=== PATIENT | female | born 1995 | race Caucasian/White ===

== ENCOUNTER 2017-04-29 14:54 | Inpatient (IN) | payer OTHER ==
[~2017-04-29] VITALS: Ht 157.5 cm; Wt 91.4 kg
--- NOTE | 2017-04-29 15:32 | RADRPT ---
PROCEDURE: US OB. CLINICAL INDICATION: Size and dates , hypertension TECHNIQUE: Multiple sonographic images of the pelvis and gravid uterus were obtained. The images were reviewed on a PACS workstation. COMPARISON: No prior studies are available for comparison. FINDINGS: There is a single viable intrauterine gestation. Cardiac activity is present with 152 beats per min sun'aq. There is a vertex presentation. The placenta is fundal maternal right. There is no evidence for an abruption or placenta previa. Measurements were made in order to determine age. The results are as follows: BPD =8.2 cm HC =29.2 cm AC =29.3 cm FL =6.2 cm Estimated gestational age of approximately 32 weeks and 5 days based on ultrasound measurements. Clinical age: 31 weeks and 4 days. The estimated date of delivery is 06/19/17, based on ultrasound measurements. The EFW = 2070 g, 81%, based on LMP age. RPTAT: AA IMPRESSION: Single viable intrauterine gestation of approximately 32 weeks and 5 days based on ultrasound measu rements. .Serafin Aguila MD, Date Time Electronically viewed and signed by .Serafin Aguila MD, MD on 04/29/2017 15:32 .S/
--- NOTE | 2017-04-29 15:47 | RADRPT ---
PROCEDURE: US OB biophysical profile. CLINICAL INDICATION: decreased movements TECHNIQUE: Multiple sonographic images of the pelvis were obtained. The images were reviewed on a PACS workstation. COMPARISON: No prior studies are available for comparison. FINDINGS: There is a single viable intrauterine gestation. Cardiac activity is present with 154 beats per min mervin. There is a vertex presentation. The placenta is fundal maternal right. There is no evidence of placental abruption. There is a normal amount of amniotic fluid with an CINDY = 11.3 cm. Biophysical profile: movement 2/2 tone 2/2. breathing 2/2 CINDY 2/2 Total 04/13 RPTAT: AA . IMPRESSION: Normal biophysical profile. . .Serafin Aguila MD, MD Date Time Electronically viewed and signed by .Serafin Aguila MD, MD on 04/29/2017 15:47 .S/
[2017-04-29 15:54] LABS: BASOPHILS % 0.3 % (0.0-2.0); EOSINOPHILS # 0.1 10^3/ul (0.0-0.5); EOSINOPHILS % 0.6 % (0.0-7.0); HEMATOCRIT 34.4 % (37.0-47.0); HEMOGLOBIN 11.1 g/dl (12.0-16.0); LYMPHOCYTES # 1.9 10^3/ul (0.8-2.9); LYMPHOCYTES % 17.7 % (15.0-51.0); MEAN CORPUSCULAR HGB CONC 32.3 g/dl (32.0-37.0); MEAN CORPUSCULAR VOLUME 83.7 fl (82.0-101.0); MEAN PLATELET VOLUME 12.6 fl (7.4-10.4); MONOCYTE # 0.7 10^3/ul (0.3-0.9); MONOCYTES % 6.5 % (0.0-11.0); NEUTROPHILS % 74.4 % (39.0-77.0); PLATELET COUNT 159 10^3/UL (140-415); RED BLOOD COUNT 4.11 10^6/ul (4.20-5.40)
[2017-04-29 16:05] LABS: ADD UMIC YES; UR ASCORBIC ACID NEGATIVE (NEGATIVE); UR BACTERIA FEW /HPF (NONE SEEN); UR BILIRUBIN (Dip) NEGATIVE (NEGATIVE); UR BLOOD (Dip) NEGATIVE (NEGATIVE); UR CLARITY CLEAR (CLEAR); UR COLOR STRAW (YELLOW); UR GLUCOSE (Dip) NEGATIVE (NEGATIVE); UR KETONES (Dip) NEGATIVE (NEGATIVE); UR LEUKOCYTE ESTERASE (Dip) NEGATIVE Leu/ul (NEGATIVE); UR NITRITE (Dip) NEGATIVE (NEGATIVE); UR RBC 1 /HPF (0-5); UR SPECIFIC GRAVITY (Dip) 1.003 (1.003-1.030); UR SQUAMOUS EPITHELIAL CELL FEW /HPF (FEW); UR TOTAL PROTEIN (Dip) 1+ mg/dl (NEGATIVE); UR UROBILINOGEN (Dip) NEGATIVE (NEGATIVE)
[2017-04-29 16:33] LABS: ALBUMIN 2.7 g/dl (3.3-4.9); ALBUMIN/GLOBULIN RATIO 0.9; CALCIUM 8.6 mg/dl (8.4-10.2); CREATININE 0.67 mg/dl (0.44-1.00); TOTAL PROTEIN 5.7 g/dl (6.1-8.1); URIC ACID 5.5 mg/dl (3.1-7.9)
--- NOTE | 2017-04-29 16:33 | TRIAGE ---
OB Triage Datetime Report Generated by CPN: 04/29/2017 16:32 Datetime: 04/29/2017 16:07 Stage of : OB Triage Maternal Assessment Level of Consciousness: Fully Conscious DTR's/Clonus: DTRs 2+ Headache: Denies Blurred Vision: No Nausea/Vomiting: Denies RUQ Epigastric Pain: Denies Facial Edema: 1+ Labor Evaluation Frequency: 0 Monitor Mode: External Pattern: Normal: <= 5 Contractions in 10 Minutes Resting Tone Custer: Relaxed Heart Rate FHR Baseline Rate: 155 Monitor Mode: External US Variability: Moderate 6-25 bpm Accelerations: 15X15 Decelerations: None Category: Category I Pain Presence: None/Denies Pain Type: N/A Datetime: 04/29/2017 15:40 Time of Arrival: 04/29/2017 14:47 EGA: 31.4 Arrived By: Ambulatory Arrived From: Dr. Rocha Chief Complaint: SENT FROM CLINIC FOR ELEVATED B/P Movement: Present Contractions: Denies/Absent Rupture of Membranes: Denies Vaginal Bleeding: None Vaginal Discharge: Denies Recent Sexual Intercouse: Denies Patient Complaints: Other Time Provider Notified: 04/29/2017 16:30 Provider Notified: DR. IQBAL Initial Plan: EFMX2, PIH EVALIATION Datetime: 04/29/2017 15:30 Stage of : OB Triage Assessment Type: Triage Maternal Assessment Level of Consciousness: Fully Conscious DTR's/Clonus: DTRs 2+; No Clonus Headache: Denies Blurred Vision: No Respiratory Effort: Unlabored; Regular Rhythm; Equal Expansion Breath Sounds, Left: Clear and Equal Breath Sounds, Right: Clear and Equal Nausea/Vomiting: Denies RUQ Epigastric Pain: Denies Lower Extremities Edema: Bilateral Lower Extremities Degree: Pitting Upper Extremities Edema: None Degree: None Facial Edema: None Temperature Route: Oral Fall Risk Assessment History of Falling: (0) No Secondary Diagnosis: (0) No Ambulatory Aid: (0) Bedrest/Nurse Assist IV Therapy: (0) No Gait: (0) Normal/Bedrest/Immobile Mental Status: (0) Oriented to Own Ability Fall Score: 0 Fall Risk Score Definition: No Risk: No action required Labor Evaluation Frequency: 0 Monitor Mode: External Monitor Mode: External US Pain Assessment Pain Scale: 0 Pain Presence: None/Denies Pain Type: N/A
[2017-04-29] MEDS ORDERED: BETAMET NA PHOS/AC(6 MG/ML) 5ML INJ IM ONE (17:00)
[2017-04-29] MEDS ORDERED: LABETALOL 200 MG TAB PO ONE (17:00)
[2017-04-29] MEDS: BETAMET NA PHOS/AC(6 MG/ML) 5ML INJ IM SCH (17:00)
[2017-04-29] MEDS ORDERED: MAGNESIUM SULFATE 4 GM/100 ML 100 ML IV ONE (17:00)
[2017-04-29] MEDS: LACTATED RINGER'S 1,000 ML IV SCH (17:10)
[2017-04-29] MEDS: MAGNESIUM SULFATE 20 GM/500 ML 500 ML IV SCH (17:53)
[2017-04-29] MEDS: ACETAMINOPHEN 325 MG TAB PO PRN (20:47)
[2017-04-29] MEDS ORDERED: LABETALOL 200 MG TAB PO PRN (21:00)
[2017-04-29 21:55] VITALS: Ht 157.5 cm; Wt 91.4 kg
[2017-04-29] MEDS ORDERED: LABETALOL HCL 20MG INJ ONE (23:29)
[2017-04-29] MEDS: LABETALOL HCL 20MG INJ IV PRN (23:45)
[2017-04-30 01:18] LABS: BASOPHILS % 0.1 % (0.0-2.0); HEMATOCRIT 34.6 % (37.0-47.0); HEMOGLOBIN 11.4 g/dl (12.0-16.0); LYMPHOCYTES # 1.4 10^3/ul (0.8-2.9); LYMPHOCYTES % 8.5 % (15.0-51.0); MEAN CORPUSCULAR HEMOGLOBIN 27.1 pg (29.0-33.0); MEAN CORPUSCULAR HGB CONC 32.9 g/dl (32.0-37.0); MEAN CORPUSCULAR VOLUME 82.2 fl (82.0-101.0); MONOCYTE # 0.2 10^3/ul (0.3-0.9); MONOCYTES % 0.9 % (0.0-11.0); NEUTROPHILS % 89.6 % (39.0-77.0); PLATELET COUNT 183 10^3/UL (140-415); RED BLOOD COUNT 4.21 10^6/ul (4.20-5.40); RED CELL DISTRIBUTION WIDTH 12.9 % (11.5-14.5); WHITE BLOOD COUNT 15.8 10^3/ul (4.8-10.8)
[2017-04-30 01:47] LABS: ALBUMIN 2.9 g/dl (3.3-4.9); ALBUMIN/GLOBULIN RATIO 0.9; CREATININE 0.63 mg/dl (0.44-1.00); POTASSIUM 4.3 mmol/L (3.5-5.1); TOTAL PROTEIN 6.1 g/dl (6.1-8.1); URIC ACID 5.7 mg/dl (3.1-7.9)
[2017-04-30] MEDS: LACTATED RINGER'S 1,000 ML IV SCH ×3 (04:46→16:03)
[2017-04-30] MEDS: LABETALOL 100 MG TAB PO SCH ×2 (04:49→18:44)
[2017-04-30] MEDS ORDERED: LABETALOL 200 MG TAB PO SCH (05:00)
[2017-04-30] MEDS ORDERED: LABETALOL 100 MG TAB PO PRN (05:00)
[2017-04-30] MEDS: MAGNESIUM SULFATE 20 GM/500 ML 500 ML IV SCH ×2 (07:51→20:12)
[2017-04-30] MEDS: ACETAMINOPHEN 325 MG TAB PO PRN ×2 (07:54→20:05)
[2017-04-30] MEDS: METOCLOPRAMIDE 10 MG TAB PO SCH ×2 (08:20→09:20)
[2017-04-30] MEDS: PRENATAL VITAMIN PO SCH (09:19)
[2017-04-30] MEDS: FOLIC ACID 1 MG TAB PO SCH (09:20)
[2017-04-30 09:57] LABS: ALBUMIN/GLOBULIN RATIO 0.96; CALCIUM 7.7 mg/dl (8.4-10.2); CREATININE 0.67 mg/dl (0.44-1.00); TOTAL PROTEIN 6.1 g/dl (6.1-8.1)
[2017-04-30 10:05] LABS: POTASSIUM 4.7 mmol/L (3.5-5.1)
[2017-04-30 13:00] LABS: WHITE BLOOD COUNT 16.8 10^3/ul (4.8-10.8)
[2017-04-30 13:01] LABS: BASOPHILS % 0.1 % (0.0-2.0); HEMOGLOBIN 10.6 g/dl (12.0-16.0); LYMPHOCYTES # 1.5 10^3/ul (0.8-2.9); LYMPHOCYTES % 9.2 % (15.0-51.0); MEAN CORPUSCULAR HEMOGLOBIN 27.5 pg (29.0-33.0); MEAN CORPUSCULAR HGB CONC 33.1 g/dl (32.0-37.0); MEAN CORPUSCULAR VOLUME 82.9 fl (82.0-101.0); MEAN PLATELET VOLUME 12.6 fl (7.4-10.4); MONOCYTE # 0.9 10^3/ul (0.3-0.9); MONOCYTES % 5.1 % (0.0-11.0); PLATELET COUNT 170 10^3/UL (140-415); RED BLOOD COUNT 3.86 10^6/ul (4.20-5.40); RED CELL DISTRIBUTION WIDTH 13.2 % (11.5-14.5)
--- NOTE | 2017-04-30 14:15 | HP ---
Date/Time of Note Date/Time of Note DATE: 04/30/17 TIME: 14:07 OB - History Hx of Present Chief Complaint: Elevated BP Estimated Due Date: Jun 22, 2017 : 2 Para: 0 Spontaneous : 0 Therapeutic : 1 Ultrasounds: Normal mid trimester US Obstetrical Complications: None Medical Complications: None Past Family/Social History * Past Medical, Surgical, Family and Obstetric Histories reviewed from chart. OB Admission Exam Physical Exam HEENT: WNL Heart: Rhythm Normal Lungs: Clear, Equal Abdomen: WNL Extremities: Edema Reflexes: Normal Heart Rate: 130's Accelerations: Accelerations Present Decelerations: No Decelerations Varibility: Moderate Last 72 hourBlood Glucose Bedside Glucose - 72 Hours Test 04/30/17 08:04 Bedside Glucose 170mg/dL (70-220) Last 72 hours Lab Results CBC & BMP 04/29/17 15:40 04/30/17 00:54 04/30/17 05:54 04/30/17 12:35 Liver Function Test 04/29/17 15:40 04/30/17 00:54 04/30/17 05:54 Alanine Aminotransferase (ALT/SGPT) 51 47 45 Albumin 2.7 L 2.9 L 3.0 L Alkaline Phosphatase 172 H 204 H 211 H Aspartate Amino Transf (AST/SGOT) 66 H 67 H 56 H Direct Bilirubin 0.00 0.00 0.00 Total Protein 5.7 L 6.1 6.1 Hemoglobin A1C Test 04/30/17 12:35 Hemoglobin A1c 7.3 H Magnesium Level Test 04/30/17 00:54 04/30/17 05:50 04/30/17 12:35 Magnesium Level 4.5 H 5.2 *H 5.3 *H OB Assessment/Plan Reason for admission: other (Preeclampsia) Plan: Other Induction Method: other Other plan: Admit IV magnesium sulfate Labetalol Perinatology consult Neonatology consult IM betamethasone PIH labs 24 hour urine collection SURESH IQBAL MD Apr 30, 2017 14:15
--- NOTE | 2017-04-30 14:46 | PERINOTE ---
Date/Time of Note Date/Time of Note DATE: 04/30/17 TIME: 14:38 Assessment/Recommendations Other Assessments Severe preeclampsia remote from term BP is responding to medication Elevated LFT appears to be stable at this time Other PIH labs are negative Recommendations: I discussed this with the patient, including my recommendation that she remain in the hospital until delivery. I would favor delivery at 34 weeks GA at the latest due to the severe preeclampsia. Worsening of the disease, including uncontrolled BP and worsening liver status, would mandate earlier delivery. To this end, I would favor "PIH" labs daily until delivery. I will write instructions for the care of apparentl GDM in this patient. OB Subjective Free Text/Dictaton Patient admitted for elevated BPs in the clinic. She has been treated with labetalol (for BP) and magnesium (for seizure prophylaxis), with good BP control. She has also been found to have mildly elevated AST/ALT (67/47), stable over the course of the day. Patient has also received betamethasone for lung maturity, with elevated blood glucose levels. There is no third trimester blood glucose testing in the record. HD# 2 IUP @ 32W3D (by LMP of 06/22/17) Current Medications Current Medications Lactated Ringer's 1,000 ml @ 92 mls/hr [id number] IV Last administered on 04:46; Admin Dose 92 MLS/HR; Start 04/29/17 at 16:44 Magnesium Sulfate (Magnesium Sulfate 20 Gm/500 ml) 500 ml @ 37.5 mls/hr [id number] IV Last administered on 04/30/17 07:51; Admin Dose 37.5 MLS/HR; Start 04/29/17 at 16:44 Betamethasone Acet/Betameth SodPhos (Celestone Soluspan) 12 mg Q24H IM ; Start 04/29/17 at 17:00; Stop 04/30/17 at 17:01 Acetaminophen (Tylenol Tab) 650 mg Q4H PRN PO PAIN AND OR ELEVATED TEMP Last administered on 04/30/17 07:54; Admin Dose 650 MG; Start 04/29/17 at 20:30 Labetalol HCl (Labetalol) 20 mg Q10MIN PRN IV ELEVATED BLOOD PRESSURE Last administered on 04/29/17 23:45; Admin Dose 20 MG; Start 04/29/17 at 23:30 Labetalol HCl (Normodyne) 300 mg Q8H PRN PO ELEVATED BLOOD PRESSURE; Start at 05:00 Labetalol HCl (Normodyne) 300 mg BID PO Last administered on 04/30/17 04:49; Admin Dose 300 MG; Start 04/30/17 at 05:01 Prenat Multivit/ [place]/Iron/Folic Ac () 1 tab DAILY PO Last administered on 04/30/17 09:19; Admin Dose 1 TAB; Start 04/30/17 at 09:00 Folic Acid (Folic Acid) 1 mg DAILY PO Last administered on 04/30/17 09:20; Admin Dose 1 MG; Start 04/30/17 at 09:00 Metoclopramide HCl (Reglan) 10 mg BID PO Last administered on 04/30/17 09:20; Admin Dose 10 MG; Start 04/30/17 at 09:00 Past Medical History Medical History: no pertinent history Surgical History: no surgical history CUTTING INSPECTOR History: no pertinent CUTTING INSPECTOR history Para: 0 : 2 LMP (Females 10-50): Eyes: denies blurred vision Respiratory: no symptoms reported Cardiovascular: no symptoms reported Gastrointestinal: no symptoms reported Neurological: no symptoms reported All Other Systems: Reviewed and Negative (Denies vaginal bleeding or fluid loss , contractions.) OB Admission Exam Physical Exam Vitals: Max BP since admission 188/93, 175/100 BP at time of this visit 133/71 Heart: Rhythm Normal Lungs: Clear Abdomen: WNL Extremities: Normal Reflexes: Normal Heart Rate: 130's Accelerations: Accelerations Present Decelerations: No Decelerations Varibility: Moderate Contractions on Admission: None Last 72 hourBlood Glucose Bedside Glucose - 72 Hours Test 04/30/17 08:04 Bedside Glucose 170mg/dL (70-220) Last 72 hours Lab Results CBC & BMP 04/29/17 15:40 04/30/17 00:54 04/30/17 05:54 04/30/17 12:35 Liver Function Test 04/29/17 15:40 04/30/17 00:54 04/30/17 05:54 Alanine Aminotransferase (ALT/SGPT) 51 47 45 Albumin 2.7 L 2.9 L 3.0 L Alkaline Phosphatase 172 H 204 H 211 H Aspartate Amino Transf (AST/SGOT) 66 H 67 H 56 H Direct Bilirubin 0.00 0.00 0.00 Total Protein 5.7 L 6.1 6.1 Hemoglobin A1C Test 04/30/17 12:35 Hemoglobin A1c 7.3 H Magnesium Level Test 04/30/17 00:54 04/30/17 05:50 04/30/17 12:35 Magnesium Level 4.5 H 5.2 *H 5.3 *H Ultrasound Results EFW 2077 BPP 04/13 CINDY 11.3 cm Copies To: CC: SURESH IQBAL MD, MARIE H MD Apr 30, 2017 14:46
[2017-04-30] MEDS ORDERED: GLUCOSE GEL 15 GRAM TUBE BUCCAL PRN (15:30)
[2017-04-30] MEDS ORDERED: GLUCAGON 1 MG INJ IM PRN (15:30)
[2017-04-30] MEDS ORDERED: DEXTROSE 50% 50 ML SYRINGE IV PRN ×2 (15:30)
[2017-04-30] MEDS ORDERED: GLUCOSE GEL 15 GRAM TUBE PO PRN ×2 (15:30)
[2017-04-30] MEDS: ACCU-CHEK XX SCH ×3 (17:05→21:03)
[2017-04-30] MEDS: BETAMET NA PHOS/AC(6 MG/ML) 5ML INJ IM SCH (17:07)
[2017-04-30] MEDS: INSULIN ASPART [NOVOLOG] 3 ML PEN SC SCH ×2 (18:08→18:09)
[2017-04-30 20:12] LABS: SCRET 0.67 mg/dl (0.44-1.00)
[2017-05-01] MEDS: LACTATED RINGER'S 1,000 ML IV SCH ×3 (01:50→18:35)
[2017-05-01] MEDS: ACCU-CHEK XX SCH ×7 (06:00→21:04)
[2017-05-01 06:18] LABS: BASOPHILS % 0.1 % (0.0-2.0); HEMATOCRIT 32.9 % (37.0-47.0); HEMOGLOBIN 10.5 g/dl (12.0-16.0); LYMPHOCYTES # 1.6 10^3/ul (0.8-2.9); MEAN CORPUSCULAR HGB CONC 31.9 g/dl (32.0-37.0); MEAN CORPUSCULAR VOLUME 84.6 fl (82.0-101.0); MEAN PLATELET VOLUME 12.8 fl (7.4-10.4); MONOCYTE # 0.6 10^3/ul (0.3-0.9); MONOCYTES % 3.7 % (0.0-11.0); NEUTROPHILS % 84.8 % (39.0-77.0); PLATELET COUNT 181 10^3/UL (140-415); RED BLOOD COUNT 3.89 10^6/ul (4.20-5.40); RED CELL DISTRIBUTION WIDTH 13.3 % (11.5-14.5)
[2017-05-01 06:54] LABS: ALBUMIN 2.8 g/dl (3.3-4.9); ALBUMIN/GLOBULIN RATIO 0.9; CALCIUM 7.4 mg/dl (8.4-10.2); CREATININE 0.76 mg/dl (0.44-1.00); POTASSIUM 4.7 mmol/L (3.5-5.1); TOTAL PROTEIN 5.9 g/dl (6.1-8.1); URIC ACID 6.3 mg/dl (3.1-7.9)
[2017-05-01] MEDS ORDERED: INSULIN ASPART [NOVOLOG] 3 ML PEN SC SCH ×2 (07:35→11:30)
[2017-05-01] MEDS ORDERED: INSULIN DETEMIR [LEVEMIR] 3ML CART SC SCH (08:00)
[2017-05-01] MEDS: FOLIC ACID 1 MG TAB PO SCH (09:00)
[2017-05-01] MEDS: PRENATAL VITAMIN PO SCH ×2 (09:00→13:00)
[2017-05-01] MEDS: METOCLOPRAMIDE 10 MG TAB PO SCH ×2 (09:00→21:04)
[2017-05-01] MEDS: LABETALOL 100 MG TAB PO SCH ×2 (09:00→21:04)
[2017-05-01] MEDS: MAGNESIUM SULFATE 20 GM/500 ML 500 ML IV SCH (09:30)
[2017-05-01] MEDS: INSULIN ASPART [NOVOLOG] 3 ML PEN SC SCH ×3 (12:38→17:26)
[2017-05-01] MEDS ORDERED: MAGNESIUM SULFATE 20 GM/500 ML 500 ML IV SCH (12:50)
[2017-05-01] MEDS ORDERED: LABETALOL HCL 20MG INJ IV PRN (13:00)
[2017-05-01] MEDS ORDERED: LABETALOL 100 MG TAB PO PRN (13:00)
[2017-05-01] MEDS ORDERED: METOCLOPRAMIDE 10 MG TAB PO PRN (13:00)
[2017-05-01] MEDS ORDERED: ACETAMINOPHEN 325 MG TAB PO PRN (13:00)
--- NOTE | 2017-05-01 13:21 | PERINOTE ---
Date/Time of Note Date/Time of Note DATE: 05/01/17 TIME: 13:16 Assessment/Recommendations Other Assessments Preeclampsia remote from term Severe by BP criteria Currently stable Recommendations: Would continue to check CBC and LFTs daily Would plan to deliver at 34 weeks, earlier if the BP becomes unmanageable or other severe symptoms arise. OB Subjective Free Text/Dictaton Patient admitted for elevated BP in the office (new finding). 24 hour urine protein is elevated. AST and ALT were initially elevated, but have declined since admission. Patient is currently on IV magnesium sulfate and is status post a course of betamethasone for lung maturity (last dose 5 PM yesterday ) Patient also found to have elevated blood glucose. HgbA1c is elevated at 7.3%, suggesting that this represents a chronic condition, likely gestational diabetes. Her blood glucose is also elevated due to steroid treatment. She has been begun on insulin, which will be modified depending on blood glucose findings. HD# 3 IUP @ 32W4D Complaints/Overnight events No complaints at present. Current Medications Current Medications Lactated Ringer's 1,000 ml @ 92 mls/hr [id number] IV Last administered on 01:50; Admin Dose 92 MLS/HR; Start 04/29/17 at 16:44 Magnesium Sulfate (Magnesium Sulfate 20 Gm/500 ml) 500 ml @ 37.5 mls/hr [id number] IV Last administered on 05/01/17 09:30; Admin Dose 37.5 MLS/HR; Start 04/29/17 at 16:44 Acetaminophen (Tylenol Tab) 650 mg Q4H PRN PO PAIN AND OR ELEVATED TEMP Last administered on 04/30/17 20:05; Admin Dose 650 MG; Start 04/29/17 at 20:30 Labetalol HCl (Labetalol) 20 mg Q10MIN PRN IV ELEVATED BLOOD PRESSURE Last administered on 04/29/17 23:45; Admin Dose 20 MG; Start 04/29/17 at 23:30 Labetalol HCl (Normodyne) 300 mg Q8H PRN PO ELEVATED BLOOD PRESSURE; Start at 05:00 Labetalol HCl (Normodyne) 300 mg BID PO Last administered on 05/01/17 09:00; Admin Dose 300 MG; Start 04/30/17 at 05:01 Prenat Multivit/ [place]/Iron/Folic Ac () 1 tab DAILY PO Last administered on 05/01/17 09:00; Admin Dose 1 TAB; Start 04/30/17 at 09:00 Folic Acid (Folic Acid) 1 mg DAILY PO Last administered on 05/01/17 09:00; Admin Dose 1 MG; Start 04/30/17 at 09:00 Metoclopramide HCl (Reglan) 10 mg BID PO Last administered on 04/30/17 08:20; Admin Dose 10 MG; Start 04/30/17 at 09:00 Diagnostic Test (Pha) (Accu-Chek) 1 ea FBSPP XX Last administered on 05/01/17 06:00; Admin Dose 1 EA; Start 04/30/17 at 19:35 Insulin Detemir (Levemir) 44 unit DAILY@08 SC Last administered on 05/01/17 08 :40; Admin Dose 44 UNIT; Start 05/01/17 at 08:00 Miscellaneous Information 1 ea NOTE XX ; Start 04/30/17 at 15:30 Glucose (Glutose) 15 gm Q15M PRN PO DECREASED GLUCOSE; Start 04/30/17 at 15:30 Glucose (Glutose) 22.5 gm Q15M PRN PO DECREASED GLUCOSE; Start 04/30/17 at 15: 30 Dextrose (D50w Syringe) 25 ml Q15M PRN IV DECREASED GLUCOSE; Start 04/30/17 at 15:30 Dextrose (D50w Syringe) 50 ml Q15M PRN IV DECREASED GLUCOSE; Start 04/30/17 at 15:30 Glucagon (Glucagen) 1 mg Q15M PRN IM DECREASED GLUCOSE; Start 04/30/17 at 15:30 Glucose 15 gm 15 gm Q15M PRN BUCCAL DECREASED GLUCOSE; Start 04/30/17 at 15:30 Lactated Ringer's 1,000 ml @ 125 mls/hr Q8H IV ; Start 05/01/17 at 12:50; Status UNV Magnesium Sulfate (Magnesium Sulfate 20 Gm/500 ml) 500 ml @ 37.5 mls/hr [id number] IV ; Start 05/01/17 at 12:50; Status UNV Prenat Multivit/ [place]/Iron/Folic Ac () 1 tab DAILY PO ; Start 05/01/17 at 13:00; Status UNV Ferrous Sulfate (Ferrous Sulfate (Ec)) 325 mg DAILY PO ; Start 05/02/17 at 09:00 ; Status UNV Acetaminophen (Tylenol Tab) 650 mg Q4H PRN PO PAIN AND OR ELEVATED TEMP; Start 05/01/17 at 13:00; Status UNV Metoclopramide HCl (Reglan) 10 mg BID PRN PO NAUSEA AND/OR VOMITING; Start at 13:00; Status UNV Labetalol HCl (Normodyne) 300 mg BID PO ; Start 05/01/17 at 21:00; Status UNV Labetalol HCl (Normodyne) 300 mg Q8 PRN PO ELEVATED BLOOD PRESSURE; Start 05/01 at 13:00; Status UNV Labetalol HCl (Labetalol) 20 mg PRN PRN IV ELEVATED BLOOD PRESSURE; Start 05/01 at 13:00; Status UNV OB Admission Exam Physical Exam Vitals: BPs have been in the range of 130/80 Abdomen: WNL Last 72 hourBlood Glucose Bedside Glucose - 72 Hours Test 04/30/17 08:04 04/30/17 15:42 04/30/17 20:51 05/01/17 12:43 Bedside Glucose 170mg/dL (70-220) 172mg/dL (70-220) 163mg/dL (70-220) 128mg/dL (70-220) Last 72 hours Lab Results CBC & BMP 04/29/17 15:40 04/30/17 00:54 04/30/17 05:54 04/30/17 12:35 05/01/17 05:45 Liver Function Test 04/29/17 15:40 04/30/17 00:54 04/30/17 05:54 05/01/17 05:45 Alanine Aminotransferase (ALT/SGPT) 51 47 45 43 Albumin 2.7 L 2.9 L 3.0 L 2.8 L Alkaline Phosphatase 172 H 204 H 211 H 180 H Aspartate Amino Transf (AST/SGOT) 66 H 67 H 56 H 43 Direct Bilirubin 0.00 0.00 0.00 0.00 Total Protein 5.7 L 6.1 6.1 5.9 L Hemoglobin A1C Test 04/30/17 12:35 Hemoglobin A1c 7.3 H Magnesium Level Test 04/30/17 00:54 04/30/17 05:50 04/30/17 12:35 04/30/17 19:00 Magnesium Level 4.5 H 5.2 *H 5.3 *H 5.1 *H Copies To: CC: SURESH IQBAL MD, MARIE H MD May 01, 2017 13:21
[2017-05-01] MEDS ORDERED: GLUCOSE GEL 24 GRAMS PO PRN ×2 (14:00)
[2017-05-01] MEDS ORDERED: DEXTROSE 50% 50 ML SYRINGE IV PRN (14:00)
[2017-05-01] MEDS: ACETAMINOPHEN 325 MG TAB PO PRN (14:01)
[2017-05-01] MEDS ORDERED: AL HYDROX/MG HYDROX/SIMETH 30 ML CUP PO PRN (17:30)
[2017-05-01] MEDS ORDERED: ACCU-CHEK XX SCH (17:35)
--- NOTE | 2017-05-01 18:05 | QN ---
Documentation Comment NMo complaint Afebrile VSS BP improved D/C magnesium sulfate Monitor BP. SURESH IQBAL MD May 01, 2017 18:05
[2017-05-01] MEDS ORDERED: LIDOCAINE 1% (MPF) 5 ML VIAL SC ONE (18:30)
[2017-05-01 19:50] LABS: BASOPHILS % 0.1 % (0.0-2.0); HEMATOCRIT 30.8 % (37.0-47.0); HEMOGLOBIN 9.9 g/dl (12.0-16.0); LYMPHOCYTES # 1.7 10^3/ul (0.8-2.9); LYMPHOCYTES % 12.6 % (15.0-51.0); MEAN CORPUSCULAR HEMOGLOBIN 27.2 pg (29.0-33.0); MEAN CORPUSCULAR HGB CONC 32.1 g/dl (32.0-37.0); MEAN CORPUSCULAR VOLUME 84.6 fl (82.0-101.0); MEAN PLATELET VOLUME 12.9 fl (7.4-10.4); MONOCYTES % 7.3 % (0.0-11.0); NEUTROPHILS % 78.6 % (39.0-77.0); PLATELET COUNT 153 10^3/UL (140-415); RED BLOOD COUNT 3.64 10^6/ul (4.20-5.40); RED CELL DISTRIBUTION WIDTH 13.2 % (11.5-14.5); WHITE BLOOD COUNT 13.8 10^3/ul (4.8-10.8)
[2017-05-01 20:12] LABS: ALBUMIN 2.7 g/dl (3.3-4.9); CALCIUM 7.5 mg/dl (8.4-10.2); CREATININE 0.77 mg/dl (0.44-1.00); POTASSIUM 3.8 mmol/L (3.5-5.1); TOTAL PROTEIN 5.4 g/dl (6.1-8.1); URIC ACID 6.6 mg/dl (3.1-7.9)
[2017-05-01] MEDS ORDERED: LABETALOL 100 MG TAB PO SCH (21:00)
[2017-05-02] VITALS (7 sets, daily range): BP systolic 138–177; BP diastolic 80–91; PULSE 70–88; RESP 17–21
[2017-05-02] MEDS: LACTATED RINGER'S 1,000 ML IV SCH ×3 (02:14→19:45)
[2017-05-02] MEDS ORDERED: LABETALOL HCL 20MG INJ IV ONE (04:00)
[2017-05-02] MEDS ORDERED: MAGNESIUM SULFATE 4 GM/100 ML 100 ML ONE (04:33)
[2017-05-02] MEDS ORDERED: MAGNESIUM SULFATE 20 GM/500 ML 500 ML IV ONE (04:33)
[2017-05-02] MEDS ORDERED: MAGNESIUM SULFATE 4 GM/100 ML 100 ML IVPB ONE (05:00)
[2017-05-02] MEDS: ACETAMINOPHEN 325 MG TAB PO PRN (05:26)
[2017-05-02] MEDS: MAGNESIUM SULFATE 20 GM/500 ML 500 ML IV SCH ×3 (05:28→15:00)
[2017-05-02 06:23] LABS: BASOPHILS % 0.2 % (0.0-2.0); EOSINOPHILS % 0.2 % (0.0-7.0); HEMATOCRIT 31.7 % (37.0-47.0); HEMOGLOBIN 10.1 g/dl (12.0-16.0); LYMPHOCYTES # 2.4 10^3/ul (0.8-2.9); MEAN CORPUSCULAR HEMOGLOBIN 26.7 pg (29.0-33.0); MEAN CORPUSCULAR HGB CONC 31.9 g/dl (32.0-37.0); MEAN CORPUSCULAR VOLUME 83.9 fl (82.0-101.0); MEAN PLATELET VOLUME 12.8 fl (7.4-10.4); MONOCYTES % 7.6 % (0.0-11.0); NEUTROPHILS % 72.3 % (39.0-77.0); NUCLEATED RED BLOOD CELLS% 0.2 /100WBC (0.0-0.0); PLATELET COUNT 162 10^3/UL (140-415); RED BLOOD COUNT 3.78 10^6/ul (4.20-5.40); RED CELL DISTRIBUTION WIDTH 13.6 % (11.5-14.5); WHITE BLOOD COUNT 13.1 10^3/ul (4.8-10.8)
[2017-05-02] MEDS: ACCU-CHEK XX SCH ×2 (06:36→20:05)
[2017-05-02 06:57] LABS: ALBUMIN 2.6 g/dl (3.3-4.9); ALBUMIN/GLOBULIN RATIO 0.89; CALCIUM 8.1 mg/dl (8.4-10.2); CREATININE 0.7 mg/dl (0.44-1.00); TOTAL PROTEIN 5.5 g/dl (6.1-8.1)
[2017-05-02] MEDS: LABETALOL HCL 20MG INJ IV PRN ×3 (07:05→09:53)
[2017-05-02] MEDS ORDERED: INSULIN DETEMIR [LEVEMIR] 3ML CART SC SCH (08:00)
[2017-05-02] MEDS: FERROUS SULFATE (EC) 325 MG TAB PO SCH (09:00)
[2017-05-02] MEDS: FOLIC ACID 1 MG TAB PO SCH (09:00)
[2017-05-02] MEDS: PRENATAL VITAMIN PO SCH (09:00)
[2017-05-02] MEDS ORDERED: CEFAZOLIN 2 GM/50 ML (PMX) 50 ML IVPB ONE (09:00)
[2017-05-02] MEDS ORDERED: CITRIC ACID/NA CITRATE 30 ML CUP ONE (09:55)
[2017-05-02] MEDS ORDERED: morphine SULFATE/PF (10 MG/10 ML) INJ ONE (10:10)
[2017-05-02] MEDS ORDERED: OXYTOCIN 30 UNITS/LR 500 ML IV ONE ×2 (10:10→14:18)
[2017-05-02] MEDS ORDERED: KETOROLAC 30 MG INJ ONE (10:10)
[2017-05-02] MEDS ORDERED: METOCLOPRAMIDE 10 MG INJ ONE (10:10)
[2017-05-02] MEDS ORDERED: FENTAnyl 50 MCG/ML VIAL ONE (11:18)
[2017-05-02] MEDS ORDERED: ONDANSETRON 4 MG INJ IV PRN ×2 (12:00)
[2017-05-02] MEDS ORDERED: DIPHENHYDRAMINE 50 MG INJ IV PRN ×2 (12:00)
[2017-05-02] MEDS ORDERED: MEPERIDINE 25 MG INJ IV PRN (12:00)
[2017-05-02] MEDS ORDERED: NALOXONE (0.4 MG/ML) INJ IV PRN (12:00)
[2017-05-02] MEDS ORDERED: HYDROmorphONE 1 MG/ML SYG IV PRN ×3 (12:00)
[2017-05-02] MEDS ORDERED: METOCLOPRAMIDE 10 MG INJ IV PRN (12:00)
[2017-05-02] MEDS ORDERED: HYDROmorphONE (0.2 MG/ML) 10ML SYG IV PRN ×3 (12:00)
--- NOTE | 2017-05-02 12:49 | PREOPHP ---
DATE OF ADMISSION: 04/29/2017 HISTORY OF PRESENT ILLNESS: The patient is a 21-year-old female, 2, para 0010, estimated delivery 06/22/2017, who was transferred from the clinic due to elevated blood pressure. The patient had a blood pressure of 162/93 in the clinic. PAST MEDICAL HISTORY: Unremarkable. PAST SURGICAL HISTORY: Unremarkable. ALLERGIES: NO KNOWN DRUG ALLERGIES. FAMILY HISTORY: Diabetes. PHYSICAL EXAMINATION: VITAL SIGNS: Patient is afebrile. Vital signs stable. HEENT: Examination of head, neck and chest within normal limits. ABDOMEN: Soft, nontender, and gravid. EXTREMITIES: Bilateral edema. NEUROLOGIC: Within normal limits. HOSPITAL COURSE: The patient was evaluated and was noted to have blood pressures in the severe range. The patient was admitted. Surgical consultation was obtained. Patient was initially given intravenous magnesium sulfate for seizure prophylaxis. The patient was given labetalol to control her blood pressure. The patient had workup for preeclampsia with a 24-hour urine collection and -induced hypertension panel. The patient was given intramuscular betamethasone for lung maturity. After completing the course of betamethasone, the patient's blood pressure had stabilized and discontinue magnesium sulfate and to continue with labetalol and to monitor the patient in the hospital. On 05/02/2017, the patient's blood pressure was noted to be increasing in the severe range with systolic in the 180s. The patient complained of headache and epigastric pain. The patient was restarted on intravenous magnesium sulfate for seizure prophylaxis. Case was discussed with perinatologist Dr. Mathis, who recommended to go on with delivery of the patient. The patient is for delivery by primary section. Risks, benefits, and alternatives of procedure were explained to the patient. Patient said she understood and gave informed consent for the procedure. Dictated By: Chris Wood MD /[email or web address] /Document#: [id number]
--- NOTE | 2017-05-02 12:54 | OPR ---
DATE OF OPERATION: 05/02/2017 PREOPERATIVE DIAGNOSES: 1. at 32 weeks and 5 days with preeclampsia with severe features. 2. Gestational diabetes. POSTOPERATIVE DIAGNOSES: 1. at 32 weeks and 5 days with preeclampsia with severe features. 2. Gestational diabetes. OPERATION PERFORMED: Primary low transverse section. SURGEON: Chris Wood MD TENTER FRAME BACK TENDER: Luciano Walden MD ANESTHESIA: Spinal. ANESTHESIOLOGIST: Charlette Judge MD OPERATIVE PROCEDURE: Patient was taken to the OR and placed on the operating table. After successful spinal anesthesia was given, the patient was placed into prone position. The area was prepared and draped in the usual sterile fashion. Spinal anesthesia was assessed and was satisfactory. Using scalpel, Pfannenstiel incision was made about 2 fingerbreadths above the symphysis pubis. The incision was carried to the fascia. The fascia was incised and extended bilaterally with Rosas scissors. Two Cecil's were used to separate the fascia from the muscle. The muscle was dissected down to peritoneum. The peritoneum was bluntly entered. Using a scalpel, a small transverse incision was made on the lower segment of the uterus. Upon entering the uterine cavity, attention was directed to extend the incision bilaterally curved up. The baby was delivered from cephalic presentation after suctioned clear of amniotic fluid. The baby was handed off to the team in attendance. The placenta was delivered without difficulty. The uterus was closed with number 1 Monocryl continuous lock type fashion. Hemostasis, both ovaries and tubes. This resolved once the peritoneum was closed with 2-0 Vicryl continuous. Fascia was closed with number 1 Vicryl continuous in 2 segments. The subcutaneous tissue was reapproximated with 2-0 plain. The skin was closed nestor. ESTIMATED BLOOD LOSS: 600 mL. COUNTS: All counts were correct. Dictated By: Chris Wood MD /[email or web address] /Document#: [id number]
[2017-05-02] MEDS: METOCLOPRAMIDE 10 MG TAB PO SCH (13:16)
[2017-05-02] MEDS ORDERED: ACCU-CHEK XX SCH (13:30)
--- NOTE | 2017-05-02 13:40 | RADRPT ---
PROCEDURE: OB ultrasound for biophysical profile CLINICAL INDICATION: Decelerations. TECHNIQUE: Multiple sonographic images of the pelvis were obtained. Transabdominal view of the gr avid uterus are available for review. The images were reviewed on a PACS workstation. COMPARISON: 04/29/2017 FINDINGS: breathing movement = 2/2 tone = 2/2 motion = 2/2 Amniotic fluid = 2/2 CINDY = 15.4 cm Single live intrauterine in cephalic presentation with cardiac activity (150 bpm). Posterior placenta, grade 2. IMPRESSION: 1. Single viable intrauterine gestation. 2. Biophysical profile = 8/8. 3. CINDY = 4 cm. RPTAT: HTAR .Rakan Clemens MD, MD Date Time Electronically viewed and signed by .Rakan Clemens MD, on 05/02/2017 02:35 .R/
[2017-05-02] MEDS: OXYTOCIN 30 UNITS/LR 500 ML IV SCH ×5 (14:23→22:30)
[2017-05-02] MEDS ORDERED: ONDANSETRON INJ 8 MG in DEXTROSE 5% 50 ML IV PRN (15:30)
[2017-05-02] MEDS ORDERED: OXYCODONE/ACETAMINOPHEN (5/325) TAB PO PRN (17:00)
[2017-05-02] MEDS ORDERED: CARBOPROST 250 MCG INJ IM PRN (17:00)
[2017-05-02] MEDS ORDERED: MISOPROSTOL 200 MCG TAB PR PRN (17:00)
[2017-05-02] MEDS ORDERED: OXYTOCIN 30 UNITS/LR 500 ML IV PRN (17:00)
[2017-05-02] MEDS ORDERED: LANOLIN 7 GM TUBE TOP PRN (17:00)
[2017-05-02] MEDS ORDERED: LABETALOL 100 MG TAB PO SCH (21:00)
[2017-05-02] MEDS: SENNA/DOCUSATE NA (8.6MG/50MG) TAB PO SCH (21:40)
[2017-05-02] MEDS: LABETALOL 100 MG TAB PO SCH (21:40)
[2017-05-03] VITALS (14 sets, daily range): BP systolic 118–148; BP diastolic 76–90; PULSE 63–75; RESP 17–20
[2017-05-03] MEDS: MAGNESIUM SULFATE 20 GM/500 ML 500 ML IV SCH ×3 (01:00→11:00)
[2017-05-03] MEDS: KETOROLAC 30 MG INJ IV PRN ×2 (02:26→09:08)
[2017-05-03] MEDS: OXYTOCIN 30 UNITS/LR 500 ML IV SCH ×3 (02:30→10:30)
--- NOTE | 2017-05-03 03:05 | PN ---
Date/Time of Note Date/Time of Note DATE: 05/03/17 TIME: 03:03 Assessment/Plan VTE Prophylaxis VTE Prophylaxis Intervention: SCD's Lines/Catheters IV Catheter Type (from Nrsg): Peripheral IV Subjective 24 Hr Interval Summary Free Text/Dictation Anesthesia note A 1 year female s/p duramorph spinal is dooing fine. pain is controlled, n/V is contorlled by zofran, no itching back pain or headache. back is clean . care per surgery team Exam/Review of Systems Vital Signs Vitals Vital Signs Date Time Temp Pulse Resp B/P Pulse Ox O2 Delivery O2 Flow Rate FiO2 05/03/17 02:00 68 18 134/81 Room Air 05/03/17 00:00 98.1 Intake and Output 05/02/17 05/02/17 05/03/17 15:00 23:00 07:00 Intake Total 1450 ml 675 ml Output Total 2450 ml 600 ml 700 ml Balance -1000 ml 75 ml -700 ml Results Result Diagram: 05/02/17 0541 05/02/17 0541 Results 24 hrs Laboratory Tests Test 05/02/17 05:41 05/02/17 06:36 05/02/17 08:31 05/02/17 09:40 White Blood Count 13.1 H Red Blood Count 3.78 L Hemoglobin 10.1 L Hematocrit 31.7 L Mean Corpuscular Volume 83.9 Mean Corpuscular Hemoglobin 26.7 L Mean Corpuscular Hemoglobin Concent 31.9 L Red Cell Distribution Width 13.6 Platelet Count 162 Mean Platelet Volume 12.8 H Neutrophils % 72.3 Lymphocytes % 18.0 Monocytes % 7.6 Eosinophils % 0.2 Basophils % 0.2 Nucleated Red Blood Cells % 0.2 H Neutrophils # (Manual) 9.5 H Lymphocytes # 2.4 Monocytes # 1.0 H Eosinophils # 0.0 Basophils # 0.0 Nucleated Red Blood Cells # 0.0 Sodium Level 135 Potassium Level 4.0 Chloride Level 103 Carbon Dioxide Level 23 Anion Gap 13 Blood Urea Nitrogen 22 H Creatinine 0.70 Glucose Level 102 # Calcium Level 8.1 L Total Bilirubin 0.0 L Direct Bilirubin 0.00 Indirect Bilirubin 0.0 Aspartate Amino Transf (AST/SGOT) 62 H Alanine Aminotransferase (ALT/SGPT) 47 Alkaline Phosphatase 182 H Total Protein 5.5 L Albumin 2.6 L Globulin 2.90 Albumin/Globulin Ratio 0.89 Bedside Glucose 99 89 Hepatitis B Surface Antigen NEGATIVE Test 05/02/17 12:40 05/02/17 13:27 05/02/17 18:24 05/03/17 00:55 Magnesium Level 5.6 *H 6.4 *H 6.2 *H Bedside Glucose 106 Medications Medications Current Medications Folic Acid (Folic Acid) 1 mg DAILY PO Last administered on 05/01/17 09:00; Admin Dose 1 MG; Start 04/30/17 at 09:00 Prenat Multivit/ [place]/Iron/Folic Ac () 1 tab DAILY PO Last administered on 05/01/17 13:00; Admin Dose 1 TAB; Start 05/01/17 at 13:00 Ferrous Sulfate 325 mg 325 mg DAILY PO ; Start 05/02/17 at 09:00 Magnesium Sulfate (Magnesium Sulfate 20 Gm/500 ml) 500 ml @ 50 mls/hr Q10H IV Last administered on 05/02/17 05:28; Admin Dose 50 MLS/HR; Start 05/02/17 at 05 :00 Naloxone HCl (Narcan) 0.1 mg Q2M PRN IV FOR RESP RATE 8 OR LESS; Start at 12:00; Stop 05/03/17 at 11:59 Ketorolac Tromethamine (Toradol) 30 mg Q6H PRN IV PAIN Last administered on 02:26; Admin Dose 30 MG; Start 05/02/17 at 12:00; Stop 05/03/17 at 11:59 Hydromorphone HCl (Dilaudid) 1 mg Q3H PRN IV BREAKTHROUGH PAIN; Start 05/02/17 at 12:00; Stop 05/03/17 at 11:59 Hydromorphone HCl (Dilaudid) 0.2 mg Q3H PRN IV PAIN LEVEL 1-5; Start 05/02/17 at 12:00; Stop 05/03/17 at 11:59 Hydromorphone HCl (Dilaudid) 0.4 mg Q3H PRN IV PAIN LEVEL 6-10; Start 05/02/17 at 12:00; Stop 05/03/17 at 11:59 Diphenhydramine HCl (Benadryl) 25 mg Q6H PRN IV ITCHING; Start 05/02/17 at 12: 00; Stop 05/03/17 at 11:59 Ondansetron HCl 4 mg 4 mg Q6H PRN IV NAUSEA AND/OR VOMITING; Start 05/02/17 at 12:00; Stop 05/03/17 at 11:59 Magnesium Sulfate 500 ml @ 50 mls/hr Q10H IV Last administered on 05/03/17 02 :10; Admin Dose 50 MLS/HR; Start 05/02/17 at 12:41 Oxytocin/Lactated Ringer's 500 ml @ 125 mls/hr Q4H IV Last administered on 14:23; Admin Dose 125 MLS/HR; Start 05/02/17 at 14:30 Labetalol HCl 300 mg 300 mg BID PO Last administered on 05/02/17 21:40; Admin Dose 300 MG; Start 05/02/17 at 21:00 Lactated Ringer's (Lr) 1,000 ml @ 125 mls/hr Q8H IV Last administered on 19:45; Admin Dose 125 MLS/HR; Start 05/02/17 at 16:54 Oxycodone/ Acetaminophen (Percocet (5/ 325)) 1 tab Q4H PRN PO PAIN LEVEL 4-6; Start 05/02/17 at 17:00 Oxycodone/ Acetaminophen (Percocet (5/ 325)) 2 tab Q4H PRN PO PAIN LEVEL 7-10; Start 05/02/17 at 17:00 Ibuprofen (Motrin) 800 mg Q8 PO ; Start 05/03/17 at 14:00 Simethicone (Mylicon) 160 mg Q8H PRN PO DISTENSION/GAS/BLOATING; Start at 17:00 Senna/Docusate Sodium (Senokot-S) 1 tab BID PO Last administered on 05/02/17 21:40; Admin Dose 1 TAB; Start 05/02/17 at 21:00 Diphtheria/ Tetanus/Acell Pertussis 0.5 ml 0.5 ml ONCE ONCE IM* ; Start at 09:00; Stop 05/05/17 at 09:01 Oxytocin/Lactated Ringer's 500 ml @ 0 mls/hr ONCE PRN IV For Hemorrhage Management; Start 8/27/17 at 17:00 Carboprost Tromethamine (Hemabate) 250 mcg ONCE PRN IM VAGINAL BLEEDING; Start 05/02/17 at 17:00 Misoprostol (Cytotec) 1,000 mcg ONCE PRN ND VAGINAL BLEEDING; Start 05/02/17 at 17:00 Diagnostic Test (Pha) (Accu-Chek) 1 ea FBSPP XX ; Start 05/02/17 at 19:35 WESLY HANLEY MD May 03, 2017 03:05
[2017-05-03] MEDS: ACCU-CHEK XX SCH ×4 (07:30→21:00)
[2017-05-03 07:57] LABS: BASOPHIL # 0.1 10^3/ul (0.0-0.1); BASOPHILS % 0.4 % (0.0-2.0); EOSINOPHILS # 0.1 10^3/ul (0.0-0.5); EOSINOPHILS % 0.3 % (0.0-7.0); HEMATOCRIT 30.5 % (37.0-47.0); HEMOGLOBIN 10.2 g/dl (12.0-16.0); LYMPHOCYTES % 13.7 % (15.0-51.0); MEAN CORPUSCULAR HEMOGLOBIN 27.6 pg (29.0-33.0); MEAN CORPUSCULAR HGB CONC 33.4 g/dl (32.0-37.0); MEAN CORPUSCULAR VOLUME 82.7 fl (82.0-101.0); MEAN PLATELET VOLUME 12.6 fl (7.4-10.4); MONOCYTES % 6.9 % (0.0-11.0); PLATELET COUNT 152 10^3/UL (140-415); RED BLOOD COUNT 3.69 10^6/ul (4.20-5.40); RED CELL DISTRIBUTION WIDTH 13.4 % (11.5-14.5); WHITE BLOOD COUNT 14.3 10^3/ul (4.8-10.8)
--- NOTE | 2017-05-03 08:23 | CONS ---
DATE OF ADMISSION: 04/29/2017 DATE OF CONSULTATION: 05/01/2017 REFERRING PHYSICIAN: Chris Wood MD HISTORY OF PRESENT ILLNESS: I was asked to speak with this mother who is a 21-year-old, 2, para 0, AB1, with good care. Estimated gestational age is 32.5 days today. Mother has diabetes and is on insulin drip and also has severe preeclampsia and is on labetalol as well as magnesium sulfate. She received 2 doses of betamethasone so far. Her AST and ALT were initially elevated but have declined since, and she will be monitored with [facility] labs. Mother's labs were all essentially normal except for GBS which has not been done. She received betamethasone on April 29 at 1700 hours and April 30 at 1700 hours. Ultrasound estimated weight was 2070 grams. I talked with mother about the fetus being 32-1/2 weeks with risk for premature lung problem as well as the fluid in the lungs requiring oxygen administration or CPAP administration if the infant is in respiratory distress. Also talked about premature lung problem incidents which is low after betamethasone and administration of surfactant if infant is requiring greater than 30-40 percent oxygen with respiratory distress. Discussed about incidences of apnea of prematurity, as well as treatment with caffeine and nasal cannula. Discussed risks and benefits of the procedures. Also discussed about risk of sepsis and possibility of starting on antibiotics, and monitoring CBCs and blood cultures. Discussed about IV fluids as well as TPN administration and to be started on tube feedings when is clinically stable. Mother would like to pump breast milk and recommended an breast pump breast milk and would like to breast feed. I also talked about the risk of hyperbilirubinemia, poor feeding, risk for gastroesophageal reflux and NEC, and also discussed about the risk for neurodevelopmental delay. Mother was emotional and started to cry during discussion. Discussed about length of stay as well as good prognosis with 32- 1/2 weeks premature . Discussed about length of stay of 3- 4 weeks and also answered all questions. As mother had no further questions the discussion was concluded. Dictated By: Surinder Meredith MD /richard/ochoa Clark#: [id number]/Document#: [id number]
--- NOTE | 2017-05-03 08:36 | QN ---
Documentation Comment No complaint Afebrile VSS Abdomen soft ND POD #1 Stable D/C magnesium sulfate after 24 hours Continue labetalol. SURESH IQBAL MD May 03, 2017 08:36
[2017-05-03] MEDS: PRENATAL VITAMIN PO SCH (08:53)
[2017-05-03] MEDS: SENNA/DOCUSATE NA (8.6MG/50MG) TAB PO SCH ×2 (08:53→20:49)
[2017-05-03] MEDS: FERROUS SULFATE (EC) 325 MG TAB PO SCH (08:53)
[2017-05-03] MEDS: LACTATED RINGER'S 1,000 ML IV SCH ×2 (08:54→16:54)
[2017-05-03] MEDS: LABETALOL 100 MG TAB PO SCH ×2 (08:58→20:49)
[2017-05-03 09:32] LABS: ALBUMIN 2.5 g/dl (3.3-4.9); ALBUMIN/GLOBULIN RATIO 0.89; BILIRUBIN,INDIRECT 0.1 mg/dl (0-1.1); BILIRUBIN,TOTAL 0.1 mg/dl (0.2-1.3); CALCIUM 6.3 mg/dl (8.4-10.2); CREATININE 0.77 mg/dl (0.44-1.00); POTASSIUM 4.5 mmol/L (3.5-5.1); TOTAL PROTEIN 5.3 g/dl (6.1-8.1)
[2017-05-03] MEDS: FOLIC ACID 1 MG TAB PO SCH (12:42)
[2017-05-03] MEDS: IBUPROFEN 800 MG TAB PO SCH ×2 (16:22→22:42)
[2017-05-03] MEDS: OXYCODONE/ACETAMINOPHEN (5/325) TAB PO PRN ×2 (16:23→20:48)
[2017-05-04] VITALS (13 sets, daily range): BP systolic 115–160; BP diastolic 63–96; PULSE 72–92; RESP 18–20
[2017-05-04] MEDS: LACTATED RINGER'S 1,000 ML IV SCH ×3 (00:54→16:54)
[2017-05-04] MEDS: OXYCODONE/ACETAMINOPHEN (5/325) TAB PO PRN ×6 (03:21→23:10)
[2017-05-04] MEDS: IBUPROFEN 800 MG TAB PO SCH ×3 (06:10→21:30)
[2017-05-04] MEDS: ACCU-CHEK XX SCH ×4 (07:30→20:27)
[2017-05-04] MEDS: LABETALOL 100 MG TAB PO SCH (09:39)
[2017-05-04] MEDS: FERROUS SULFATE (EC) 325 MG TAB PO SCH (09:39)
[2017-05-04] MEDS: PRENATAL VITAMIN PO SCH (09:40)
[2017-05-04] MEDS: SENNA/DOCUSATE NA (8.6MG/50MG) TAB PO SCH ×2 (09:40→21:00)
[2017-05-04] MEDS: FOLIC ACID 1 MG TAB PO SCH (09:40)
[2017-05-04 10:13] LABS: BASOPHILS % 0.2 % (0.0-2.0); EOSINOPHILS # 0.1 10^3/ul (0.0-0.5); EOSINOPHILS % 0.6 % (0.0-7.0); HEMATOCRIT 31.4 % (37.0-47.0); HEMOGLOBIN 9.9 g/dl (12.0-16.0); LYMPHOCYTES # 2.3 10^3/ul (0.8-2.9); LYMPHOCYTES % 17.9 % (15.0-51.0); MEAN CORPUSCULAR HEMOGLOBIN 26.4 pg (29.0-33.0); MEAN CORPUSCULAR HGB CONC 31.5 g/dl (32.0-37.0); MEAN CORPUSCULAR VOLUME 83.7 fl (82.0-101.0); MEAN PLATELET VOLUME 12.7 fl (7.4-10.4); MONOCYTES % 7.6 % (0.0-11.0); NEUTROPHILS % 73.3 % (39.0-77.0); PLATELET COUNT 169 10^3/UL (140-415); RED BLOOD COUNT 3.75 10^6/ul (4.20-5.40); RED CELL DISTRIBUTION WIDTH 13.8 % (11.5-14.5); WHITE BLOOD COUNT 12.7 10^3/ul (4.8-10.8)
[2017-05-04 10:39] LABS: ALBUMIN 2.8 g/dl (3.3-4.9); ALBUMIN/GLOBULIN RATIO 0.93; CREATININE 0.74 mg/dl (0.44-1.00); POTASSIUM 4.2 mmol/L (3.5-5.1); TOTAL PROTEIN 5.8 g/dl (6.1-8.1)
[2017-05-04] MEDS ORDERED: NIFEdipine (XL) 30 MG TAB PO ONE (14:30)
[2017-05-04] MEDS ORDERED: MAGNESIUM HYDROXIDE 30ML CUP PO ONE (14:30)
[2017-05-04 19:06] LABS: BASOPHILS % 0.3 % (0.0-2.0); EOSINOPHILS # 0.2 10^3/ul (0.0-0.5); EOSINOPHILS % 1.3 % (0.0-7.0); HEMATOCRIT 30.4 % (37.0-47.0); HEMOGLOBIN 9.8 g/dl (12.0-16.0); LYMPHOCYTES # 2.3 10^3/ul (0.8-2.9); LYMPHOCYTES % 19.6 % (15.0-51.0); MEAN CORPUSCULAR HEMOGLOBIN 27.1 pg (29.0-33.0); MEAN CORPUSCULAR HGB CONC 32.2 g/dl (32.0-37.0); MEAN CORPUSCULAR VOLUME 84.2 fl (82.0-101.0); MEAN PLATELET VOLUME 12.5 fl (7.4-10.4); MONOCYTES % 8.1 % (0.0-11.0); NEUTROPHILS % 70.1 % (39.0-77.0); PLATELET COUNT 179 10^3/UL (140-415); RED BLOOD COUNT 3.61 10^6/ul (4.20-5.40); RED CELL DISTRIBUTION WIDTH 13.6 % (11.5-14.5); WHITE BLOOD COUNT 11.9 10^3/ul (4.8-10.8)
[2017-05-04 19:24] LABS: ALBUMIN 3.1 g/dl (3.3-4.9); CALCIUM 7.7 mg/dl (8.4-10.2); CREATININE 0.68 mg/dl (0.44-1.00); POTASSIUM 4.3 mmol/L (3.5-5.1); TOTAL PROTEIN 6.2 g/dl (6.1-8.1); URIC ACID 5.7 mg/dl (3.1-7.9)
--- NOTE | 2017-05-04 22:37 | QN ---
Documentation Comment No complaint Afebrile BP still elevated Abdomen soft ND Will add Procardia and hydralazine to control,BP. SURESH IQBAL MD May 04, 2017 22:37
[2017-05-04] MEDS: NIFEdipine (XL) 30 MG TAB PO SCH (23:12)
[2017-05-05] VITALS (18 sets, daily range): BP systolic 122–156; BP diastolic 60–99; PULSE 73–93; RESP 16–20
[2017-05-05] MEDS: LACTATED RINGER'S 1,000 ML IV SCH ×4 (00:54→20:38)
[2017-05-05] MEDS: OXYCODONE/ACETAMINOPHEN (5/325) TAB PO PRN ×4 (04:36→16:57)
[2017-05-05] MEDS: IBUPROFEN 800 MG TAB PO SCH ×3 (05:28→21:36)
[2017-05-05] MEDS: ACCU-CHEK XX SCH ×4 (07:59→20:05)
[2017-05-05] MEDS: PRENATAL VITAMIN PO SCH (08:47)
[2017-05-05] MEDS: FOLIC ACID 1 MG TAB PO SCH (08:48)
[2017-05-05] MEDS: NIFEdipine (XL) 30 MG TAB PO SCH (08:48)
[2017-05-05] MEDS: SENNA/DOCUSATE NA (8.6MG/50MG) TAB PO SCH ×2 (08:48→21:36)
[2017-05-05] MEDS: FERROUS SULFATE (EC) 325 MG TAB PO SCH (08:49)
[2017-05-05] MEDS ORDERED: DIPHTH/TET/ACEL PERTUSS (ADULT) 0.5 ML VIAL IM* ONE (09:00)
--- NOTE | 2017-05-05 09:04 | QN ---
Documentation Comment Patient denids any complaints Afebrile BP was still elevated Hydralazine was added to contriol BP Continie to monitor BP. SURESH IQBAL MD May 05, 2017 09:04
[2017-05-05 11:57] LABS: ALBUMIN 3.2 g/dl (3.3-4.9); ALBUMIN/GLOBULIN RATIO 0.91; CALCIUM 8.6 mg/dl (8.4-10.2); CREATININE 0.61 mg/dl (0.44-1.00); POTASSIUM 4.4 mmol/L (3.5-5.1); TOTAL PROTEIN 6.7 g/dl (6.1-8.1)
[2017-05-05 12:14] LABS: BASOPHILS % 0.3 % (0.0-2.0); EOSINOPHILS # 0.3 10^3/ul (0.0-0.5); EOSINOPHILS % 2.2 % (0.0-7.0); HEMATOCRIT 32.9 % (37.0-47.0); HEMOGLOBIN 10.6 g/dl (12.0-16.0); LYMPHOCYTES # 2.7 10^3/ul (0.8-2.9); LYMPHOCYTES % 20.3 % (15.0-51.0); MEAN CORPUSCULAR HEMOGLOBIN 27.5 pg (29.0-33.0); MEAN CORPUSCULAR HGB CONC 32.2 g/dl (32.0-37.0); MEAN CORPUSCULAR VOLUME 85.5 fl (82.0-101.0); MEAN PLATELET VOLUME 12.4 fl (7.4-10.4); MONOCYTE # 0.9 10^3/ul (0.3-0.9); MONOCYTES % 6.9 % (0.0-11.0); NEUTROPHILS % 69.7 % (39.0-77.0); PLATELET COUNT 218 10^3/UL (140-415); RED BLOOD COUNT 3.85 10^6/ul (4.20-5.40); RED CELL DISTRIBUTION WIDTH 13.7 % (11.5-14.5); WHITE BLOOD COUNT 13.1 10^3/ul (4.8-10.8)
[2017-05-05] MEDS ORDERED: MAGNESIUM SULFATE 4 GM/100 ML 100 ML IVPB ONE (20:00)
[2017-05-05] MEDS ORDERED: MAGNESIUM SULFATE 2 GM/50 ML 50 ML IVPB ONE (20:00)
[2017-05-05] MEDS: MAGNESIUM SULFATE 20 GM/500 ML 500 ML IV SCH (20:49)
[2017-05-06] VITALS (19 sets, daily range): BP systolic 116–165; BP diastolic 64–98; PULSE 72–101; RESP 18–20
[2017-05-06] MEDS: NIFEdipine (XL) 30 MG TAB PO SCH ×3 (00:02→21:22)
[2017-05-06] MEDS: OXYCODONE/ACETAMINOPHEN (5/325) TAB PO PRN ×4 (00:12→17:50)
[2017-05-06] MEDS: LACTATED RINGER'S 1,000 ML IV SCH ×5 (00:54→22:40)
[2017-05-06] MEDS: IBUPROFEN 800 MG TAB PO SCH ×3 (06:30→21:25)
[2017-05-06] MEDS: MAGNESIUM SULFATE 20 GM/500 ML 500 ML IV SCH ×2 (06:36→16:29)
[2017-05-06] MEDS: ACCU-CHEK XX SCH ×4 (07:30→20:05)
[2017-05-06] MEDS: PRENATAL VITAMIN PO SCH (09:00)
[2017-05-06] MEDS: SENNA/DOCUSATE NA (8.6MG/50MG) TAB PO SCH ×2 (09:00→21:24)
[2017-05-06] MEDS ORDERED: ONDANSETRON 4 MG INJ IV PRN (10:00)
[2017-05-06 10:48] LABS: BASOPHIL # 0.1 10^3/ul (0.0-0.1); BASOPHILS % 0.4 % (0.0-2.0); EOSINOPHILS # 0.3 10^3/ul (0.0-0.5); EOSINOPHILS % 2.3 % (0.0-7.0); HEMATOCRIT 35.7 % (37.0-47.0); HEMOGLOBIN 11.4 g/dl (12.0-16.0); LYMPHOCYTES # 2.2 10^3/ul (0.8-2.9); LYMPHOCYTES % 16.2 % (15.0-51.0); MEAN CORPUSCULAR HEMOGLOBIN 26.7 pg (29.0-33.0); MEAN CORPUSCULAR HGB CONC 31.9 g/dl (32.0-37.0); MEAN CORPUSCULAR VOLUME 83.6 fl (82.0-101.0); MEAN PLATELET VOLUME 11.7 fl (7.4-10.4); MONOCYTE # 0.8 10^3/ul (0.3-0.9); NEUTROPHILS % 74.5 % (39.0-77.0); PLATELET COUNT 245 10^3/UL (140-415); RED BLOOD COUNT 4.27 10^6/ul (4.20-5.40); RED CELL DISTRIBUTION WIDTH 13.9 % (11.5-14.5); WHITE BLOOD COUNT 13.6 10^3/ul (4.8-10.8)
[2017-05-06 11:02] LABS: ALBUMIN 3.2 g/dl (3.3-4.9); ALBUMIN/GLOBULIN RATIO 1.06; BILIRUBIN,INDIRECT 0.1 mg/dl (0-1.1); BILIRUBIN,TOTAL 0.1 mg/dl (0.2-1.3); CALCIUM 7.6 mg/dl (8.4-10.2); CREATININE 0.68 mg/dl (0.44-1.00); POTASSIUM 4.5 mmol/L (3.5-5.1); TOTAL PROTEIN 6.2 g/dl (6.1-8.1)
[2017-05-06] MEDS: FERROUS SULFATE (EC) 325 MG TAB PO SCH (12:25)
[2017-05-06] MEDS ORDERED: DIPHTH/TET/ACEL PERTUSS (ADULT) 0.5 ML VIAL IM* ONE (13:30)
[2017-05-06] MEDS: FOLIC ACID 1 MG TAB PO SCH (14:18)
--- NOTE | 2017-05-06 20:41 | QN ---
Documentation Comment Patient had headache and increasing BP on 05/05/2017 therefore patient was placed on IV magnesium sulfate for seizure prophylaxis. Patient feels better now and her BP is lower. Afebrile VSS Abdomen soft ND Continue present care. SURESH IQBAL MD May 06, 2017 20:41
[2017-05-07] MEDS: LACTATED RINGER'S 1,000 ML IV SCH ×4 (00:23→16:54)
[2017-05-07] MEDS: OXYCODONE/ACETAMINOPHEN (5/325) TAB PO PRN ×4 (00:28→19:12)
[2017-05-07] MEDS: MAGNESIUM SULFATE 20 GM/500 ML 500 ML IV SCH ×3 (00:58→12:00)
[2017-05-07 04:00] VITALS: BP 121/73; PULSE 80; RESP 18
[2017-05-07] MEDS: IBUPROFEN 800 MG TAB PO SCH ×3 (06:03→21:58)
[2017-05-07] MEDS: ACCU-CHEK XX SCH ×4 (07:58→19:57)
[2017-05-07 08:00] VITALS: BP 136/90; PULSE 97; RESP 18
[2017-05-07] MEDS: PRENATAL VITAMIN PO SCH (09:00)
[2017-05-07] MEDS: FERROUS SULFATE (EC) 325 MG TAB PO SCH (09:35)
[2017-05-07] MEDS: NIFEdipine (XL) 30 MG TAB PO SCH ×2 (09:35→20:31)
[2017-05-07] MEDS: SENNA/DOCUSATE NA (8.6MG/50MG) TAB PO SCH ×2 (09:36→20:31)
[2017-05-07] MEDS: FOLIC ACID 1 MG TAB PO SCH (09:36)
[2017-05-07 11:50] VITALS: BP 139/80; PULSE 95; RESP 18
[2017-05-07] MEDS ORDERED: MAGNESIUM HYDROXIDE 30ML CUP PO ONE (12:30)
--- NOTE | 2017-05-07 14:26 | QN ---
Documentation Comment C/O constipation. No other complaiont. Afebrile VSS Abdomen soft ND Patient is off magnesium sulfate Continue with Procardia Repeat [facility] labs. SURESH IQBAL MD May 07, 2017 14:26
[2017-05-07] MEDS ORDERED: DIPHTH/TET/ACEL PERTUSS (ADULT) 0.5 ML VIAL IM* ONE (14:30)
[2017-05-07 15:28] LABS: BASOPHILS % 0.1 % (0.0-2.0); EOSINOPHILS # 0.2 10^3/ul (0.0-0.5); EOSINOPHILS % 1.2 % (0.0-7.0); HEMATOCRIT 36.5 % (37.0-47.0); HEMOGLOBIN 12.1 g/dl (12.0-16.0); LYMPHOCYTES # 2.2 10^3/ul (0.8-2.9); MEAN CORPUSCULAR HEMOGLOBIN 28.1 pg (29.0-33.0); MEAN CORPUSCULAR HGB CONC 33.2 g/dl (32.0-37.0); MEAN CORPUSCULAR VOLUME 84.7 fl (82.0-101.0); MEAN PLATELET VOLUME 11.7 fl (7.4-10.4); MONOCYTE # 0.8 10^3/ul (0.3-0.9); MONOCYTES % 5.5 % (0.0-11.0); NEUTROPHILS % 76.8 % (39.0-77.0); PLATELET COUNT 326 10^3/UL (140-415); RED BLOOD COUNT 4.31 10^6/ul (4.20-5.40); RED CELL DISTRIBUTION WIDTH 13.6 % (11.5-14.5); WHITE BLOOD COUNT 13.7 10^3/ul (4.8-10.8)
[2017-05-07 16:12] LABS: ALBUMIN 3.7 g/dl (3.3-4.9); ALBUMIN/GLOBULIN RATIO 1.08; CALCIUM 8.1 mg/dl (8.4-10.2); CREATININE 0.68 mg/dl (0.44-1.00); POTASSIUM 4.6 mmol/L (3.5-5.1); TOTAL PROTEIN 7.1 g/dl (6.1-8.1); URIC ACID 5.5 mg/dl (3.1-7.9)
[2017-05-07 16:25] VITALS: BP 136/85; PULSE 89; RESP 18
[2017-05-07 20:00] VITALS: BP 135/93; PULSE 103; RESP 19
[2017-05-07 23:30] VITALS: BP 137/88; PULSE 92; RESP 17
[2017-05-08] MEDS: LACTATED RINGER'S 1,000 ML IV SCH ×5 (00:54→16:54)
[2017-05-08 05:30] VITALS: BP 136/97; PULSE 99; RESP 19
[2017-05-08] MEDS: IBUPROFEN 800 MG TAB PO SCH ×3 (05:39→22:49)
[2017-05-08] MEDS: OXYCODONE/ACETAMINOPHEN (5/325) TAB PO PRN ×2 (05:45→19:51)
[2017-05-08] MEDS: MAGNESIUM SULFATE 20 GM/500 ML 500 ML IV SCH (08:00)
[2017-05-08 08:30] VITALS: BP 138/90; PULSE 94; RESP 16
[2017-05-08] MEDS: ACCU-CHEK XX SCH ×3 (08:30→15:00)
[2017-05-08] MEDS: NIFEdipine (XL) 30 MG TAB PO SCH ×2 (09:36→20:52)
[2017-05-08] MEDS: FOLIC ACID 1 MG TAB PO SCH (11:02)
[2017-05-08] MEDS: FERROUS SULFATE (EC) 325 MG TAB PO SCH (11:02)
[2017-05-08] MEDS: PRENATAL VITAMIN PO SCH ×2 (11:03→11:05)
[2017-05-08] MEDS: SENNA/DOCUSATE NA (8.6MG/50MG) TAB PO SCH ×2 (11:03→20:52)
[2017-05-08 12:30] VITALS: BP 124/86; PULSE 89; RESP 18
[2017-05-08 15:22] LABS: BASOPHILS % 0.2 % (0.0-2.0); EOSINOPHILS # 0.1 10^3/ul (0.0-0.5); EOSINOPHILS % 0.9 % (0.0-7.0); HEMATOCRIT 34.4 % (37.0-47.0); HEMOGLOBIN 11.2 g/dl (12.0-16.0); LYMPHOCYTES # 1.7 10^3/ul (0.8-2.9); LYMPHOCYTES % 13.3 % (15.0-51.0); MEAN CORPUSCULAR HEMOGLOBIN 27.6 pg (29.0-33.0); MEAN CORPUSCULAR HGB CONC 32.6 g/dl (32.0-37.0); MEAN CORPUSCULAR VOLUME 84.7 fl (82.0-101.0); MEAN PLATELET VOLUME 10.9 fl (7.4-10.4); MONOCYTE # 0.8 10^3/ul (0.3-0.9); MONOCYTES % 6.7 % (0.0-11.0); NEUTROPHILS % 78.4 % (39.0-77.0); PLATELET COUNT 274 10^3/UL (140-415); RED BLOOD COUNT 4.06 10^6/ul (4.20-5.40); RED CELL DISTRIBUTION WIDTH 13.7 % (11.5-14.5); WHITE BLOOD COUNT 12.5 10^3/ul (4.8-10.8)
[2017-05-08 15:50] LABS: ALBUMIN 3.5 g/dl (3.3-4.9); ALBUMIN/GLOBULIN RATIO 1.09; CALCIUM 8.6 mg/dl (8.4-10.2); CREATININE 0.68 mg/dl (0.44-1.00); POTASSIUM 4.5 mmol/L (3.5-5.1); TOTAL PROTEIN 6.7 g/dl (6.1-8.1); URIC ACID 5.3 mg/dl (3.1-7.9)
[2017-05-08 16:08] VITALS: BP 132/88; PULSE 86; RESP 20
--- NOTE | 2017-05-08 16:26 | QN ---
Documentation Comment No complaint Afebrile VSS Abdomen soft AST and ALT increasing Will continue to monitor Repeat labs in AM. SURESH IQBAL MD May 08, 2017 16:26
[2017-05-08 20:45] VITALS: BP 138/86; PULSE 100; RESP 18
[2017-05-09] VITALS: BP 130/89; PULSE 89; RESP 18
[2017-05-09] MEDS: LACTATED RINGER'S 1,000 ML IV SCH ×5 (00:04→17:20)
[2017-05-09 04:00] VITALS: BP 136/86; RESP 18
[2017-05-09] MEDS: IBUPROFEN 800 MG TAB PO SCH ×3 (05:37→22:56)
[2017-05-09 08:00] VITALS: BP 140/88; PULSE 100; RESP 18
[2017-05-09 08:18] LABS: BASOPHILS % 0.4 % (0.0-2.0); EOSINOPHILS # 0.2 10^3/ul (0.0-0.5); EOSINOPHILS % 1.9 % (0.0-7.0); HEMOGLOBIN 11.1 g/dl (12.0-16.0); LYMPHOCYTES # 2.1 10^3/ul (0.8-2.9); LYMPHOCYTES % 21.3 % (15.0-51.0); MEAN CORPUSCULAR HEMOGLOBIN 27.4 pg (29.0-33.0); MEAN CORPUSCULAR HGB CONC 32.6 g/dl (32.0-37.0); MONOCYTE # 0.9 10^3/ul (0.3-0.9); MONOCYTES % 8.8 % (0.0-11.0); NEUTROPHILS % 67.2 % (39.0-77.0); PLATELET COUNT 277 10^3/UL (140-415); RED BLOOD COUNT 4.05 10^6/ul (4.20-5.40); RED CELL DISTRIBUTION WIDTH 13.7 % (11.5-14.5); WHITE BLOOD COUNT 9.9 10^3/ul (4.8-10.8)
[2017-05-09 08:41] LABS: ALBUMIN 3.5 g/dl (3.3-4.9); ALBUMIN/GLOBULIN RATIO 1.06; BILIRUBIN,INDIRECT 0.1 mg/dl (0-1.1); BILIRUBIN,TOTAL 0.1 mg/dl (0.2-1.3); CALCIUM 8.6 mg/dl (8.4-10.2); CREATININE 0.62 mg/dl (0.44-1.00); POTASSIUM 4.3 mmol/L (3.5-5.1); TOTAL PROTEIN 6.8 g/dl (6.1-8.1); URIC ACID 5.1 mg/dl (3.1-7.9)
[2017-05-09] MEDS: SENNA/DOCUSATE NA (8.6MG/50MG) TAB PO SCH ×2 (09:31→20:49)
[2017-05-09] MEDS: FERROUS SULFATE (EC) 325 MG TAB PO SCH (09:32)
[2017-05-09] MEDS: PRENATAL VITAMIN PO SCH (09:32)
[2017-05-09] MEDS: NIFEdipine (XL) 30 MG TAB PO SCH ×2 (09:33→20:48)
[2017-05-09] MEDS: FOLIC ACID 1 MG TAB PO SCH (09:33)
[2017-05-09] MEDS: OXYCODONE/ACETAMINOPHEN (5/325) TAB PO PRN ×2 (09:37→19:44)
[2017-05-09 11:50] VITALS: BP 141/86; PULSE 101; RESP 19
--- NOTE | 2017-05-09 15:11 | QN ---
Documentation Comment Patient is resting in bed no complains of headache epigastric pain or blurry vision however her blood pressures are running 140s over 86 140/88 while patient is on [id number] XL and labetalol, I suggest 1 more day monitoring blood pressure at the hospital with repeat liver enzyme . JOSEPH CRESPO MD May 09, 2017 15:11
[2017-05-09 15:30] VITALS: BP 137/91; PULSE 102
[2017-05-09 20:40] VITALS: BP 131/81; PULSE 91; RESP 19
[2017-05-10] MEDS: LACTATED RINGER'S 1,000 ML IV SCH ×2 (00:07→06:25)
[2017-05-10 00:08] VITALS: BP 128/77; PULSE 97; RESP 17
[2017-05-10 04:00] VITALS: BP 132/80; PULSE 75; RESP 18
[2017-05-10] MEDS: IBUPROFEN 800 MG TAB PO SCH ×2 (05:37→17:42)
[2017-05-10 08:00] VITALS: BP 112/75; PULSE 93; RESP 14
[2017-05-10] MEDS: NIFEdipine (XL) 30 MG TAB PO SCH (08:42)
[2017-05-10] MEDS: FOLIC ACID 1 MG TAB PO SCH (08:43)
[2017-05-10] MEDS: SENNA/DOCUSATE NA (8.6MG/50MG) TAB PO SCH (08:43)
[2017-05-10] MEDS: FERROUS SULFATE (EC) 325 MG TAB PO SCH (08:44)
[2017-05-10] MEDS: PRENATAL VITAMIN PO SCH (08:49)
[2017-05-10] MEDS: OXYCODONE/ACETAMINOPHEN (5/325) TAB PO PRN (12:16)
[2017-05-10 13:16] VITALS: BP 134/89; PULSE 82; RESP 16
[2017-05-10 16:42] VITALS: BP 110/70; PULSE 81; RESP 18
[2017-05-10 17:54] VITALS: BP 140/72; PULSE 96; RESP 18
== END 2017-05-10 19:31 | disposition home or self-care (01) | DRG 766 ==
LOC: L-D 14:54 → OBT 14:54 → L-D 17:01 → OBG 05-01 12:57 → L-D 05-02 03:59 → PP1 05-02 18:00
PROVIDERS: ADMIT Obstetrics & Gynecology; ATTEND Obstetrics & Gynecology
PROC: 10D00Z1 Extraction of Products of Conception, Low, Open Approach (ICD-10-PCS; principal; 2017-05-02 11:00)
DX: O14.14 Severe pre-eclampsia complicating childbirth (principal); O24.420 Gestational diabetes mellitus in childbirth, diet controlled; K59.00 Constipation, unspecified; Z37.0 Single live birth; Z3A.31 31 weeks gestation of pregnancy; O99.63 Diseases of the digestive system complicating the puerperium; R74.0 Nonspecific elevation of levels of transaminase and lactic acid dehydrogenase [LDH]; O90.89 Other complications of the puerperium, not elsewhere classified
CPT/HCPCS: 76815; 76818; 80053; 81001; 82150; 82575; 82962; 83036; 83690; 83735; 84156; 84560; 85025; 87340; 88307; 90715; 99464; G0463; J0690; J0702; J1200; J1815; J1885; J2274; J2405; J2590; J2765; J3010; J3475; J7120